=== PATIENT | female | born 1945 | race Caucasian/White ===

== ENCOUNTER 2023-10-20 14:40 | Emergency (ER) | payer MEDICARE, OTHER, SELFPAY ==
[2023-10-20 14:58] VITALS: BP 124/93; PULSE 72; TEMP 36.8; O2SAT 91; BMI 29.1
--- NOTE | 2023-10-20 15:15 | ED_ITS ---
HPI HPI - Back Pain/Injury General Chief Complaint: Back Pain/Injury Stated Complaint: BACK/REAR PAIN Time Seen by Provider: 10/20/23 15:07 Source: patient Mode of arrival: walk-in Limitations: no limitations History of Present Illness HPI Narrative: Patient is a 77-year-old female who presents to the emergency department for pain in the right buttock. She has a history of sciatica and states this feels similar. She has noticed symptoms over the last several days. She denies any falls or injuries. She was seen 3 days ago at urgent care for the symptoms and was diagnosed with Sciatica. She has no peripheral paresthesias, urinary incontinence or bowel incontinence. She is ambulatory and able to move her legs without difficulty. She states urgent care gave her A steroid shot and tizanidine to take at night and she has not had any improvement. She presents to the ER because urgent care referred her back over here today for continued pain. Related Data Previous Rx's ?Medication ?Instructions ?Recorded hydrocodone 5 mg-acetaminophen 325 1 tab PO Q6H PRN pain 3 days #12 10/20/23 mg tablet tabs methocarbamol 750 mg tablet 750 mg PO TID PRN pain #20 tabs 10/20/23 prednisone 20 mg tablet See Rx Instructions .Route 10/20/23 .COMPLEX #12 tabs Allergies Allergy/AdvReac Type Severity Reaction Status Date / Time sulfamethoxazole Allergy Mild Hives Verified 10/20/23 15:01 [From Bactrim] trimethoprim [From Bactrim] Allergy Mild Hives Verified 10/20/23 15:01 Opioid HPI Opioid Management Most Recent Opioid Data: Last ED Pain Assessment 10/20/23 15:02 Review of Systems ROS Constitutional Denies: fever or chills Ears, nose, mouth, and throat Denies: throat pain or nasal congestion Cardiovascular Denies: chest pain Respiratory Denies: shortness of breath Gastrointestinal Denies: nausea or vomiting Musculoskeletal Denies: back pain, neck pain or extremity pain Integumentary/Breast Denies: rash Neurological Denies: headache Hematologic/Lymphatic Denies: easy bruising or easy bleeding Exam Narrative Exam Narrative: Gen.: Awake, alert, in no distress Head: Normocephalic, atraumatic ENT: Moist mucous membranes Respiratory: No respiratory distress Extremities: Moves extremities equally, No bony tenderness of the T-spine or L- spine with minimal tenderness of the right buttock. Normal dorsiflexion and plantarflexion of the lower extremities with no decrease in sensation to the medial thighs. Normal hip flexion bilaterally. Patient is able to easily swing her legs off the exam cart and stand at the bedside. Psych: Normal mood and affect Neuro: No focal neuro deficit Skin: Warm, dry, intact Constitutional Vital Signs, click to edit/add: Last Vital Signs Temp 98.3 F 10/20/23 14:58 Pulse 72 10/20/23 14:58 Resp 18 10/20/23 14:58 BP 124/93 H 10/20/23 14:58 Pulse Ox 91 L 10/20/23 14:58 O2 Del Method Room Air 10/20/23 14:58 Course Vital Signs Vital signs: Vital Signs Temperature 98.3 F 10/20/23 14:58 Pulse Rate 72 10/20/23 14:58 Respiratory Rate 18 10/20/23 14:58 Blood Pressure 124/93 H 10/20/23 14:58 Pulse Oximetry 91 L 10/20/23 14:58 Oxygen Delivery Method Room Air 10/20/23 14:58 Temperature 98.3 F 10/20/23 14:58 Pulse Rate 72 10/20/23 14:58 Respiratory Rate 18 10/20/23 14:58 Blood Pressure 124/93 H 10/20/23 14:58 Pulse Oximetry 91 L 10/20/23 14:58 Oxygen Delivery Method Room Air 10/20/23 14:58 MDM - Back Pain/Injury MDM Narrative Medical decision making narrative: Patient with an acute exacerbation of sciatica that she has had before. No falls or injuries to indicate imaging. She has no focal neurodeficits. She was made aware that we do not do steroid injections into the low back or nerves, though she was given a Solu-Medrol intramuscular injection in the ER and discharged home with a short course of analgesics, Robaxin and a steroid taper. Follow-up PCP and return to the ER if symptoms change or worsen. Medical Records Attestation: I reviewed the patient's medical records. Discharge Plan Discharge Stand Alone Forms: Portal Instructions Chief Complaint: Back Pain/Injury Clinical Impression: Sciatica Patient Disposition: Home, Self-Care Time of Disposition Decision: 15:12 Condition: Good Prescriptions / Home Meds: New methocarbamol 750 mg tablet 750 mg PO TID PRN (Reason: pain) Qty: 20 0RF hydrocodone-acetaminophen 5-325 mg tablet 1 tab PO Q6H PRN (Reason: pain) 3 Days Qty: 12 0RF Rx Instructions: DX: M54.5 prednisone 20 mg tablet See Rx Instructions .ROUTE .COMPLEX Qty: 12 0RF Rx Instructions: 3 tabs daily for 2 days, then 2 tabs daily for 2 days, then 1 tab daily for 2 days Print Language: Tristanian Instructions: Sciatica (ED) Referrals: Physician,Non-Staff, MD [Primary Care Provider] - 1 week
[2023-10-20] MEDS: METHYLPREDNISOLONE SOD SUCC PF 125 MG/2 ML VIAL IM (15:24)
[2023-10-20 15:31] VITALS: BP 145/88; O2SAT 94
[2023-10-20 15:32] VITALS: PULSE 84
== END 2023-10-20 15:34 | disposition home or self-care (01) ==
PROVIDERS: Emergency Provider Emergency Medicine
DX: M54.31 Sciatica, right side (principal)
CPT/HCPCS: 96372; 99284; J2919

== ENCOUNTER 2023-10-25 13:44 | Outpatient (OUT) | payer MEDICARE, OTHER, SELFPAY ==
--- NOTE | 2023-10-25 13:56 | XR_ITS ---
[facility] [place] [id number] Patient Name: ROSEY MENJIVAR MRN: [id number] date: 1945 Sex: F Assigned Patient Location: [facility] Current Patient Location: Accession/Order Number: [id number] Exam Date: 10/25/2023 14:00 Report Date: 10/26/2023 08:02 At the request of: KENTON TO Procedure: XR lumbar spine min 4V EXAMINATION: XR lumbar spine min 4V HISTORY: Lumbosacral Spine Arthritis M47.817 COMPARISON: No relevant comparison available. FINDINGS: BONES: Neutral projection demonstrates 2 mm anterolisthesis of L4 and L5. Mild to moderate spondylosis and facet osteoarthropathy DISC SPACES: Mild multilevel disc space narrowing PARASPINOUS: Negative. No paraspinous abnormality is seen. OTHER: Moderate diffuse vascular calcifications. No transient spondylolisthesis with flexion or extension XR/XR lumbar spine min 4V IMPRESSION: Moderate degenerative changes No dynamic instability Electronically authenticated by: SONAM CACERES Date: 10/26/2023 08:02
--- NOTE | 2023-10-25 13:56 | XR_ITS ---
[place] [id number] Patient Name: ROSEY MENJIVAR MRN: [id number] date: 1945 Sex: F Assigned Patient Location: [facility] Current Patient Location: [facility] Accession/Order Number: [id number] Exam Date: 10/25/2023 14:00 Report Date: 10/26/2023 08:38 At the request of: KENTON TO Procedure: XR hip RT 2V w/ pelvis PROCEDURE: XR hip RT 2V w/ pelvis COMPARISON: None. HISTORY: Right Hip Pain M25.551 FINDINGS: BONES:No acute fracture or dislocation. Moderate bilateral hip osteoarthropathy with joint space narrowing and marginal osteophyte formation. Degenerative changes of the spine SOFT TISSUES:Negative. No visible soft tissue swelling. EFFUSION:None visible. OTHER: Vascular calcifications XR/XR hip RT 2V w/ pelvis IMPRESSION: Moderate bilateral hip osteoarthritis Electronically authenticated by: SONAM CACERES Date: 10/26/2023 08:38
== END 2023-10-25 13:45 | disposition home or self-care (01) ==
LOC: RAD 13:47
PROVIDERS: PCP Internal Medicine; Visit Provider Student in an Organized Health Care Education/Training Program
DX: M47.817 Spondylosis without myelopathy or radiculopathy, lumbosacral region (principal); M25.551 Pain in right hip; M51.36 Other intervertebral disc degeneration, lumbar region; M16.0 Bilateral primary osteoarthritis of hip
CPT/HCPCS: 72110; 73502